=== PATIENT | male | born 1995 | race Two or more races ===

== ENCOUNTER 2024-02-01 19:30 | Emergency (ER) | payer MEDICAID, OTHER ==
[~2024-02-01] VITALS: Ht 167.6 cm; Wt 64.5 kg
[2024-02-01 19:43] VITALS: BP 120/89; PULSE 80; RESP 18; TEMP 99; O2SAT 99
[2024-02-01] MEDS ORDERED: AMOX875T4 PO (22:11)
[2024-02-01] MEDS ORDERED: ACET500T58 PO (22:11)
== END 2024-02-01 22:15 | disposition home or self-care (01) ==
LOC: ER 19:30
DX: S50.811A Abrasion of right forearm, initial encounter (principal); S20.311A Abrasion of right front wall of thorax, initial encounter; W54.0XXA Bitten by dog, initial encounter; Y93.89 Activity, other specified; Y92.89 Other specified places as the place of occurrence of the external cause; Y99.8 Other external cause status